=== PATIENT | male | born 1955 | race Caucasian/White ===

== ENCOUNTER 2017-05-10 02:18 | Emergency (ER) | payer BC ==
[~2017-05-10] VITALS: Ht 170.2 cm; Wt 71.7 kg
[2017-05-10] MEDS ORDERED: KETOROLAC 15 MG/ML VIAL. ONE (02:44)
[2017-05-10] MEDS ORDERED: IV NORMAL SALINE 1,000ML 1,000 ML IV ONE (03:00)
[2017-05-10] MEDS ORDERED: KETOROLAC 15 MG/ML VIAL. IV ONE (03:00)
[2017-05-10] MEDS ORDERED: ONDANSETRON PF 4 MG/2 ML VIAL. IV ONE (03:00)
[2017-05-10] MEDS ORDERED: HYDROmorphone PF 1 MG/ML DISP.SYRIN IM ONE (03:00)
[2017-05-10 03:01] LABS: BILIRUBIN,URINE NEG (NEG); CLARITY,URINE CLEAR; COLOR,URINE YELLOW; GLUCOSE,URINE NEG (NEG); UROBILINOGEN,URINE 0.2 mg/dL (0.2 mg/dL)
--- NOTE | 2017-05-10 03:01 | RAD ---
Examination: CT of the abdomen pelvis without contrast HISTORY: History of left flank pain COMPARISON: None available TECHNIQUE: Axial CT images of the abdomen pelvis were performed without contrast. Coronal and sagittal reformats are performed Exposure: One or more of the following individualized dose reduction techniques were utilized for this examination: 1. Automated exposure control 2. Adjustment of the mA and/or kV according to patient size 3. Use of iterative reconstruction technique FINDINGS: Minimal bibasilar linear atelectasis. No evidence of free air identified in the abdomen. The evaluation of the solid organs is limited due to lack of IV contrast. The evaluation of bowel is limited due to lack of oral contrast The visualized noncontrasted liver, demonstrates a subcentimeter small hypodensity in the left lobe of the liver is too small to contrast probably a cyst. The visualized spleen, right adrenal grossly appears unremarkable. There is mild enlargement of the left adrenal gland. Stomach is mildly distended. The small bowel is nondilated. Feces and gas noted in the colon. The appendix is normal. Multiple sigmoid colon diverticulosis identified. There is faint fat stranding identified about the sigmoid colon best visualized on series 2 image #102. The urinary bladder is mildly distended. Punctate intrarenal collecting system calculi identified in the bilateral kidneys with the largest measuring 3 mm in the left kidney. Mild left-sided hydronephrosis identified. There is a 7.5 mm calculus identified in the left ureteropelvic junction. Cystic structure identified in the midpole the left kidney measuring 1.9 cm could be a cyst or cystic lesion. Prior changes of hernia mesh in the left lower abdomen. The caliber of the aorta grossly appears unremarkable Small partially visualized left hydrocele Moderate degenerative changes lumbar spine. IMPRESSION: 1. 7.5 mm calculus identified at the left ureteropelvic junction causing mild left-sided hydronephrosis. 2. Punctate bilateral intrarenal collecting system calculi. 3. Cystic structure identified in the midpole the left kidney measuring 1.9 cm could be a cyst or cystic lesion. Follow-up nonemergent ultrasound can be considered. 4. Multiple sigmoid colon diverticulosis. There is minimal fat stranding identified about the sigmoid colon diverticula best visualized on on series 2 image #102, nonspecific mild diverticulitis is a possibility. 5. Mild enlarged left adrenal gland. 6. Small left hydrocele. Electronically signed by: Theron Saunders MD (05/10/2017 2:57 AM) [facility]
[2017-05-10 03:02] LABS: BACTERIA,URINE 0 /HPF (0-FEW); NITRITE,URINE NEG (NEG); WBC,URINE OCC /HPF (0-4)
[2017-05-10 03:06] LABS: ALBUMIN/GLOBULIN RATIO 1.5 (1.0-1.7); CALCIUM 8.8 mg/dL (8.5-10.1); CREATININE 1.2 mg/dL (0.7-1.3); GFR 61.3; POTASSIUM 4.1 mmol/L (3.5-5.1); TOTAL BILIRUBIN 0.7 mg/dL (0.2-1.0); TOTAL PROTEIN 6.7 g/dL (6.4-8.2)
[2017-05-10 03:26] LABS: BASO % 0 % (0-3); EOS # 0.1 x10^3/uL (0.0-0.7); EOS % 1 % (0-3); HEMATOCRIT 46.8 % (39.0-53.0); HEMOGLOBIN 15.9 g/dL (13.0-17.5); LYMPH # 0.7 x10^3/uL (1.0-4.8); LYMPH % 5 % (24-48); MEAN CORPUSCULAR HEMOGLOBIN 31 pg (25-35); MEAN CORPUSCULAR HGB CONC 34 g/dL (31-37); MEAN CORPUSCULAR VOLUME 92 fL (79-100); MONO # 1.2 x10^3/uL (0.0-1.1); MONO % 9 % (0-9); NEUT # 11.2 x10^3uL (1.8-7.7); NEUT % 85 % (31-73); PLATELET COUNT 202 x10^3/uL (140-400); RED CELL DISTRIBUTION WIDTH 13.4 % (11.5-14.5); WHITE BLOOD COUNT 13.3 x10^3/uL (4.0-11.0)
--- NOTE | 2017-05-10 03:52 | PHYS DOC ---
Past History Past Medical History: Other Past Surgical History: Cancer Surgery Alcohol Use: None Drug Use: None Adult General Chief Complaint Chief Complaint: FLANK PAIN HPI HPI Patient is a 62-year-old gentleman who has a history significant for BPH, bladder mass in the past, his urologist is Dr. Lorenzo who recently retired, presents here today complaining of left flank pain has been intermittent in nature over the last 36 hours. Patient reports he woke up yesterday morning with pain to his flank has been having discomfort ever since. Patient reports no fevers shakes chills. Patient has had nausea vomiting after taking ibuprofen for the pain. Patient denies any diarrhea. Patient has any cough cold or rhinorrhea. Patient has a dysuria frequency or hematuria. Patient has any chest pain or shortness of breath. Patient denies any melena or bright red blood per rectum coffee-ground emesis. Patient denies any history of hypertension diabetes liver, lung, kidney problems in the past. Patient has no known drug allergies. Patient not smoke drink or do any drugs. Patient's physical exam was significant for tenderness to palpation to his left flank and left lower quadrant. Patient NABS. Patient does not present with any signs or symptoms of be consistent with an acute surgical abdomen. Patient's CT scan of his abdomen pelvis revealed a 7.5 mm calculus identified at the left UPJ causing mild left-sided hydronephrosis. There was a cystic structure identified in the midpole the left kidney measuring 2 cm which could be cystic. Follow-up nonemergent ultrasound was recommended by radiology. Patient's multiple sigmoid diverticulosis. There is minimal fat stranding identified around the sigmoid colon. Nonspecific mild diverticulitis is a possibility. Patient with mild enlarged left adrenal gland. Patient was a small left hydrocele. Assessment and plan. This is a 62-year-old gentleman who presents to the ER today with signs and symptoms classic for renal colic. Patient was found to have a 7.5 mm stone in his proximal left UPJ. Although there is a questionable possible diverticulitis on the CT scan, patient's presentation is much more consistent with his renal colic. At this time I feel that the diverticulitis, from radiology is likely a nonsignificant finding. This will need to be followed clinically. While in the ER the patient has been given Dilaudid, Zofran, Toradol, IV fluids. Patient reports his pain now is about a 5 out of 10. Given the size of the stone and the duration that he's been having the pain and the location where the stone is now I feel that patient would be best served by being admitted to assist him with pain management and urological evaluation for possible definitive treatment. I have discussed with the patient that we do not offer urological treatment since we do not have a urologist here at [facility] and have recommended transfer to [facility]. Patient is in agreement with this plan. I have talked to Dr. benjamin from [facility] and she has agreed to assist with transferring this patient to [facility] for admission, treatment of pain, and urological evaluation. Review of Systems Review of Systems Constitutional: Denies fever or chills [] Eyes: Denies change in visual acuity, redness, or eye pain [] HENT: Denies nasal congestion or sore throat [] All other review systems are negative except as documented in the history of present illness portion. Current Medications Current Medications Current Medications Medications (Trade) Dose Ordered Sig/Doreen Start Time Stop Time Status Last Admin Dose Admin Hydromorphone HCl (Dilaudid) 1 mg 1X ONCE 05/10/17 03:00 05/10/17 03:01 DC 05/10/17 02:45 1 MG Ketorolac Tromethamine (Toradol) 15 mg STK-MED ONCE 05/10/17 02:44 05/10/17 02:45 DC Ondansetron HCl (Zofran) 4 mg 1X ONCE 05/10/17 03:00 05/10/17 03:01 DC 05/10/17 02:45 4 MG Sodium Chloride 1,000 ml @ 1,000 mls/hr 1X ONCE 05/10/17 03:00 05/10/17 03:59 05/10/17 02:45 1,000 MLS/HR Allergies Allergies Allergies Coded Allergies Type Severity Reaction Last Updated Verified No Known Drug Allergies 05/10/17 No Physical Exam Physical Exam Constitutional: Well developed, well nourished, no acute distress, non-toxic appearance. HENT: Normocephalic, atraumatic, bilateral external ears normal, oropharynx moist, no oral exudates, nose normal. Eyes: EOMI, conjunctiva normal, no discharge. Neck: Normal range of motion, no tenderness, supple, no stridor. Cardiovascular:Heart rate regular rhythm, Lungs & Thorax: Bilateral breath sounds clear to auscultation Abdomen: Bowel sounds normal, soft, tenderness palpation to his left flank and left lower quadrant., no masses, no pulsatile masses. Skin: Warm, dry, no erythema, no rash. Back: Tenderness to palpation left flank Extremities: No tenderness, no cyanosis, no clubbing, ROM intact, no edema. Neurologic: Alert and oriented X 3, normal motor function, normal sensory function, no focal deficits noted. Psychologic: Affect normal, judgement normal, mood normal. Current Patient Data Vital Signs Vital Signs Date Time Temp Pulse Resp B/P (MAP) Pulse Ox O2 Delivery O2 Flow Rate FiO2 05/10/17 03:37 68 20 123/77 (92) 95 Room Air 05/10/17 02:18 98.1 Lab Results Laboratory Tests Test 05/10/17 02:30 White Blood Count 13.3 x10^3/uL (4.0-11.0) H Red Blood Count 5.10 x10^6/uL (4.30-5.70) Hemoglobin 15.9 g/dL (13.0-17.5) Hematocrit 46.8 % (39.0-53.0) Mean Corpuscular Volume 92 fL (79-100) Mean Corpuscular Hemoglobin 31 pg (25-35) Mean Corpuscular Hemoglobin Concent 34 g/dL (31-37) Red Cell Distribution Width 13.4 % (11.5-14.5) Platelet Count 202 x10^3/uL (140-400) Neutrophils (%) (Auto) 85 % (31-73) H Lymphocytes (%) (Auto) 5 % (24-48) L Monocytes (%) (Auto) 9 % (0-9) Eosinophils (%) (Auto) 1 % (0-3) Basophils (%) (Auto) 0 % (0-3) Neutrophils # (Auto) 11.2 x10^3uL (1.8-7.7) H Lymphocytes # (Auto) 0.7 x10^3/uL (1.0-4.8) L Monocytes # (Auto) 1.2 x10^3/uL (0.0-1.1) H Eosinophils # (Auto) 0.1 x10^3/uL (0.0-0.7) Basophils # (Auto) 0.0 x10^3/uL (0.0-0.2) Urine Collection Type Unknown Urine Color Yellow Urine Clarity Clear Urine pH 5.0 Urine Specific [place] 1.015 Urine Protein Neg (NEG-TRACE) Urine Glucose (UA) Neg mg/dL (NEG) Urine Ketones (Stick) Neg mg/dL (NEG) Urine Blood Large (NEG) Urine Nitrite Neg (NEG) Urine Bilirubin Neg (NEG) Urine Urobilinogen Dipstick 0.2 mg/dL (0.2 mg/dL) Urine Leukocyte Esterase Neg (NEG) Urine RBC 1-2 /HPF (0-2) Urine WBC Occ /HPF (0-4) Urine Squamous Epithelial Cells None /LPF Urine Bacteria 0 /HPF (0-FEW) Sodium Level 144 mmol/L (136-145) Potassium Level 4.1 mmol/L (3.5-5.1) Chloride Level 107 mmol/L (98-107) Carbon Dioxide Level 31 mmol/L (21-32) Anion Gap 6 (6-14) Blood Urea Nitrogen 28 mg/dL (8-26) H Creatinine 1.2 mg/dL (0.7-1.3) Estimated GFR (Cockcroft-Gault) 61.3 BUN/Creatinine Ratio 23 (6-20) H Glucose Level 116 mg/dL (70-99) H Calcium Level 8.8 mg/dL (8.5-10.1) Total Bilirubin 0.7 mg/dL (0.2-1.0) Aspartate Amino Transferase (AST) 20 U/L (15-37) Alanine Aminotransferase (ALT) 20 U/L (16-63) Alkaline Phosphatase 75 U/L (46-116) Total Protein 6.7 g/dL (6.4-8.2) Albumin 4.0 g/dL (3.4-5.0) Albumin/Globulin Ratio 1.5 (1.0-1.7) Lipase 95 U/L (73-393) EKG EKG [] Radiology/Procedures Radiology/Procedures [address] [place] [id number] IMAGING REPORT Signed PATIENT: SAMIA SON ACCOUNT: [id number] : 1955 LOCATION: ER AGE: 62 SEX: M EXAM STATUS: REG ER ORD. PHYSICIAN: ÁNGEL SETH MD REASON: l flank pain PROCEDURE: CT ABDOMEN PELVIS WO CONTRAST Examination: CT of the abdomen pelvis without contrast HISTORY: History of left flank pain COMPARISON: None available TECHNIQUE: Axial CT images of the abdomen pelvis were performed without contrast. Coronal and sagittal reformats are performed Exposure: One or more of the following individualized dose reduction techniques were utilized for this examination: 1. Automated exposure control 2. Adjustment of the mA and/or kV according to patient size 3. Use of iterative reconstruction technique FINDINGS: Minimal bibasilar linear atelectasis. No evidence of free air identified in the abdomen. The evaluation of the solid organs is limited due to lack of IV contrast. The evaluation of bowel is limited due to lack of oral contrast The visualized noncontrasted liver, demonstrates a subcentimeter small hypodensity in the left lobe of the liver is too small to contrast probably a cyst. The visualized spleen, right adrenal grossly appears unremarkable. There is mild enlargement of the left adrenal gland. Stomach is mildly distended. The small bowel is nondilated. Feces and gas noted in the colon. The appendix is normal. Multiple sigmoid colon diverticulosis identified. There is faint fat stranding identified about the sigmoid colon best visualized on series 2 image #102. The urinary bladder is mildly distended. Punctate intrarenal collecting system calculi identified in the bilateral kidneys with the largest measuring 3 mm in the left kidney. Mild left-sided hydronephrosis identified. There is a 7.5 mm calculus identified in the left ureteropelvic junction. Cystic structure identified in the midpole the left kidney measuring 1.9 cm could be a cyst or cystic lesion. Prior changes of hernia mesh in the left lower abdomen. The caliber of the aorta grossly appears unremarkable Small partially visualized left hydrocele Moderate degenerative changes lumbar spine. IMPRESSION: 1. 7.5 mm calculus identified at the left ureteropelvic junction causing mild left-sided hydronephrosis. 2. Punctate bilateral intrarenal collecting system calculi. 3. Cystic structure identified in the midpole the left kidney measuring 1.9 cm could be a cyst or cystic lesion. Follow-up nonemergent ultrasound can be considered. 4. Multiple sigmoid colon diverticulosis. There is minimal fat stranding identified about the sigmoid colon diverticula best visualized on on series 2 image #102, nonspecific mild diverticulitis is a possibility. 5. Mild enlarged left adrenal gland. 6. Small left hydrocele. Electronically signed by: Theron Saunders MD (05/10/2017 2:57 AM) [facility] DICTATED AND SIGNED BY: THERON SAUNDERS MD DATE: 05/10/17 0252 CC: ÁNGEL SETH MD; SANDRA CHRISTIANSON MD ~ [] Course & Med Decision Making Course & Med Decision Making Pertinent Labs and Imaging studies reviewed. (See chart for details) [] Dragon Disclaimer Dragon Disclaimer This chart was dictated in whole or in part using Voice Recognition software in a busy, high-work load, and often noisy Emergency Department environment. It may contain unintended and wholly unrecognized errors or omissions. Departure Departure: Impression: Primary Impression: Renal colic on left side Additional Impression: Intractable abdominal pain Disposition: 05 XFER OTHER (transfer to [facility]) Condition: STABLE Referrals: SANDRA CHRISTIANSON MD (PCP) Problem Qualifiers ÁNGEL SETH MD May 10, 2017 03:52
[2017-05-10 04:20] VITALS: BP 127/77
[2017-05-10] MEDS ORDERED: HYDROmorphone PF 1 MG/ML DISP.SYRIN IV ONE (05:00)
== END 2017-05-10 04:36 | disposition short-term general hospital (02) ==
LOC: ER 02:18
DX: N23 Unspecified renal colic (principal); N40.0 Benign prostatic hyperplasia without lower urinary tract symptoms
CPT/HCPCS: 36415; 74176; 80053; 81001; 83690; 85025; 96361; 96372; 96374; 96375; 99285; J1170; J1885; J2405; J7030